=== PATIENT | female | born 1950 | race Caucasian/White ===

== ENCOUNTER 2021-05-09 16:02 | Emergency (ER) | payer SELFPAY ==
[2021-05-09 16:17] VITALS: BMI 23.1
[2021-05-09 20:30] LABS: BASO % 0.3 % (0-2.0); EOS % 0.6 % (0-4.5); HEMATOCRIT 41.1 % (32.4-45.2); HEMOGLOBIN 14.1 GM/dL (10.7-15.3); LYMPH % 19.9 % (8-40); MCH 29.5 pg (25.7-33.7); MCHC 34.2 g/dl (32.0-36.0); MEAN CELL VOLUME 86.3 fl (80-96); MEAN PLT VOLUME 7.6 fl (7.5-11.1); MONO % 8.1 % (3.8-10.2); NEUT % 71.1 % (42.8-82.8); PLATELET COUNT 314 10^3/uL (134-434); RBC 4.77 M/mm3 (3.60-5.2); RDW 13.5 % (11.6-15.6); WHITE BLOOD COUNT 7.2 K/mm3 (4.0-10.0)
[2021-05-09 20:46] LABS: CHLORIDE 99 mmol/L (98-107); SODIUM 133 mmol/L (136-145)
[2021-05-09 20:48] LABS: CALCIUM 8.2 mg/dL (8.5-10.1)
[2021-05-09 20:49] LABS: ALBUMIN 3.4 g/dl (3.4-5.0); ANION GAP 6 MMOL/L (8-16); BLOOD UREA NITROGEN 13.6 mg/dL (7-18); CO2 28 mmol/L (21-32); GLUCOSE,RANDOM 93 mg/dL (74-106); LIPASE 98 U/L (73-393)
[2021-05-09 20:52] LABS: CREATININE 0.7 mg/dL (0.55-1.3); SGOT/AST 124 U/L (15-37)
[2021-05-09 20:53] LABS: BILIRUBIN,TOTAL 0.6 mg/dL (0.2-1)
[2021-05-09 20:54] LABS: TOT PROT 7.9 g/dl (6.4-8.2)
[2021-05-09 20:55] LABS: ALK PHOS 71 U/L (45-117); SGPT/ALT 52 U/L (13-61)
[2021-05-09 21:48] LABS: PH,URINE 6.5 (5.0-8.0); URINE APPEARANCE Clear; URINE BILIRUBIN Negative (NEGATIVE); URINE COLOR Yellow; URINE GLUCOSE (UA) Negative (NEGATIVE); URINE KETONE Negative (NEGATIVE); URINE LEUK ESTERASE 1+ (NEGATIVE); URINE NITRITE Negative (NEGATIVE); URINE PROTEIN Negative (NEGATIVE)
[2021-05-09 21:50] LABS: EPI CELLS 32.5 /uL (0-25.1); HYALINE CASTS 0.76 /uL (0-3.1); URINE BACTERIA 539.6 /uL (0-1359); URINE RBC 8.1 /uL (0-23.9); URINE WBC 45.7 /uL (0-25.8)
[2021-05-09] MEDS ORDERED: FAMOTIDINE 20 MG/50 ML IVPB 20 MG/50 ML MG IVPB ONE ×2 (22:03→22:08)
[2021-05-09] MEDS ORDERED: SODIUM CHLORIDE 1,000 ML IV STA (22:04)
[2021-05-09] MEDS ORDERED: CEFTRIAXONE 1 GM in DEXTROSE 5%-WATER - 100 ML IVPB ONE (22:57)
[2021-05-09] MEDS ORDERED: CEFTRIAXONE 1 GM/50 ML BAG ONE (23:20)
[2021-05-09 23:22] VITALS: BP 140/78; PULSE 66; TEMP 97.9
[2021-05-09 23:45] LABS: CALCIUM 8.2 mg/dL (8.5-10.1)
[2021-05-09 23:46] LABS: BLOOD UREA NITROGEN 13.5 mg/dL (7-18)
[2021-05-09 23:49] LABS: CREATININE 0.6 mg/dL (0.55-1.3)
== END 2021-05-10 01:35 | disposition home or self-care (01) ==
LOC: JER 16:02
PROC: 3E033GC Introduction of Other Therapeutic Substance into Peripheral Vein, Percutaneous Approach (ICD-10-PCS; principal; 2021-05-09)
DX: N30.00 Acute cystitis without hematuria (principal)
CPT/HCPCS: 36415; 76705-TC; 80048; 80053; 81003; 82550; 82553; 83605; 83690; 84484; 85025; 93005; 93010; 99285-25